=== PATIENT | male | born 1975 | race Caucasian/White ===

== ENCOUNTER 2022-07-08 21:19 | Emergency (ER) | payer OTHER ==
[~2022-07-08] VITALS: Ht 152.4 cm; Wt 95.5 kg
[2022-07-08] MEDS ORDERED: IBUP-1022 PO (23:12)
[2022-07-08] MEDS ORDERED: IBUPROFEN 600MG TAB PO ONE (23:15)
[2022-07-08 23:47] VITALS: BP 131/88
== END 2022-07-08 23:49 | disposition home or self-care (01) ==
LOC: M ED 21:19
DX: S93.401A Sprain of unspecified ligament of right ankle, initial encounter (principal); V00.311A Fall from snowboard, initial encounter; Y92.39 Other specified sports and athletic area as the place of occurrence of the external cause; Y93.23 Activity, snow (alpine) (downhill) skiing, snowboarding, sledding, tobogganing and snow tubing; Y99.8 Other external cause status